=== PATIENT | female | born 1940 | race Hispanic/Latino ===

== ENCOUNTER 2017-01-04 07:12 | Emergency (ER) | payer OTHER ==
[~2017-01-04] VITALS: Ht 144.8 cm; Wt 71.0 kg
[~2017-01-04 07:12] MED LIST: Ascorbic Acid,Ester- PO; HYCODAN SYRUP480 ML PO; MICROZIDE12.5 M1 PO; PROTONIX40 MG PO; Protonix PO; TAMIFLU75 MG PO; TENORMIN50 MG PO; ZITHROMAX Z-PA250 MG PO
[2017-01-04 08:57] LABS: HEMATOCRIT 36.4 % (36.0-46.0); MCH 30.3 PG (29.0-34.0); MCHC 34.1 G/DL (30.0-36.0); MEAN PLAT.VOLUME 10.3 uM^3 (9.5-12.4); PLATELET COUNT 78 K/uL (156-360); RBC DIS.WIDTH-CV 11.8 % (11.8-14.6); RBC DIS.WIDTH-SD 37.7 % (39-53); RED BLOOD COUNT 4.09 M/uL (3.80-5.20); WHITE BLOOD COUNT 4.5 K/uL (4.1-10.2)
[2017-01-04 09:05] LABS: CHLORIDE 107 mEq/L (99-109); POTASSIUM 3.8 mEq/L (3.7-5.4); SODIUM 141 mEq/L (136-147)
[2017-01-04 09:08] LABS: ANION GAP 9 MEQ/L (2-14)
[2017-01-04 09:09] LABS: TOTAL BILIRUBIN 0.4 mg/dL (0.0-1.0)
[2017-01-04 09:19] LABS: GLUCOSE 94 mg/dL (70-99)
[2017-01-04 09:22] LABS: ALKALINE PHOSPHATASE 96 IU/L (3-129)
[2017-01-04 09:23] LABS: GFR ESTIMATE (CALCULATED) > 59 mL/min/
[2017-01-04 09:24] LABS: UREA NITROGEN (BUN) 10 mg/dL (9-23)
[2017-01-04 09:39] LABS: ADD MIUA? YES; BILIRUBIN NEGATIVE; BLOOD NEGATIVE; COLOR COLORLESS ((YELLOW)); GLUCOSE (STRIP) NEGATIVE; KETONES NEGATIVE; LEUKOCYTES TRACE; NITRITE NEGATIVE; PROTEIN (STRIP) NEGATIVE; SPECIFIC GRAVITY 1.001 (1.000-1.030); UROBILINOGEN 0.2 MG/DL (0.2-1.0)
[2017-01-04 09:57] LABS: BACTERIA NONE SEEN /HPF; EPITHELIAL CELLS RARE /HPF; MUCUS NONE SEEN /LPF; RED BLOOD CELLS 20-30 /HPF (0-5); WHITE BLOOD CELLS 0-5 /HPF (0-5)
[2017-01-04] MEDS ORDERED: LISINOPRIL5 MG PO (10:16)
[2017-01-04 10:37] VITALS: BP 134/81
== END 2017-01-04 10:38 | disposition home or self-care (01) ==
LOC: EME 07:12
PROVIDERS: Nurse Practitioner Family
DX: I10 Essential (primary) hypertension (principal); D69.6 Thrombocytopenia, unspecified
CPT/HCPCS: 70450; 80053; 81003; 85027; 93005; 99281; 99283

== ENCOUNTER 2017-09-16 22:51 | Observation (INO) | payer OTHER ==
[~2017-09-16] VITALS: Ht 157.5 cm; Wt 73.2 kg
[~2017-09-16 22:51] MED LIST changes: +LISINOPRIL5 MG PO
[2017-09-16 23:49] LABS: HEMATOCRIT 38.7 % (36.0-46.0); HEMOGLOBIN 13.8 G/DL (11.9-15.5); MCH 30.7 PG (29.0-34.0); MCHC 35.7 G/DL (30.0-36.0); PLATELET COUNT 271 K/uL (156-360); RBC DIS.WIDTH-CV 11.9 % (11.8-14.6); RBC DIS.WIDTH-SD 37.3 % (39-53); WHITE BLOOD COUNT 6.5 K/uL (4.1-10.2)
[2017-09-17 00:02] LABS: CHLORIDE 98 mEq/L (99-109); POTASSIUM 3.4 mEq/L (3.7-5.4); SODIUM 132 mEq/L (136-147)
[2017-09-17 00:04] LABS: GLUCOSE 104 mg/dL (70-99)
[2017-09-17 00:08] LABS: CREATININE 0.7 mg/dL (0.6-1.3); GFR ESTIMATE (CALCULATED) > 59 mL/min/
[2017-09-17 00:09] LABS: UREA NITROGEN (BUN) 8 mg/dL (9-23)
[2017-09-17 00:11] LABS: TROP-I INTERPRETATION NEGATIVE; TROPONIN-I < 0.01 ng/mL (0.0-0.30)
[2017-09-17 07:50] LABS: HDL CHOLESTEROL 57 MG/DL (Desirable>=50); LDL CHOLESTEROL 211 mg/dL (Desirable<100); NON-HDL CHOLESTEROL 233 mg/dL (Desirable<160); TOTAL CHOLESTEROL 290 mg/dL (Desirable<200); TRIGLYCERIDES 110 MG/DL (Normal: <150)
[2017-09-17 08:17] LABS: TROP-I INTERPRETATION NEGATIVE; TROPONIN-I < 0.01 ng/mL (0.0-0.30)
[2017-09-17 08:58] VITALS: BP 174/74
[2017-09-17 11:34] VITALS: BP 147/71
[2017-09-17 13:47] LABS: TROP-I INTERPRETATION NEGATIVE; TROPONIN-I < 0.01 ng/mL (0.0-0.30)
[2017-09-17] MEDS ORDERED: ROBITUSSIN DM118 ML PO (15:08)
[2017-09-17] MEDS ORDERED: PRAVASTATIN SOD80 MG PO (15:08)
[2017-09-17] MEDS ORDERED: LISINOPRIL-HCT1 EAC3 PO (15:08)
[2017-09-17] MEDS ORDERED: ASPIR-LOW81 MG PO (15:08)
[2017-09-17 15:22] VITALS: BP 135/67
== END 2017-09-17 16:41 | disposition home or self-care (01) ==
LOC: EME 22:51 → ENPENDDIS 09-17 → EDOF 09-17 06:38 → ENRESERV 09-17 06:38 → EDOF 09-17 06:38 → ENRESERV 09-17 06:58 → 5WEST 09-17 07:56
PROVIDERS: Physician Assistant
DX: R07.9 Chest pain, unspecified (principal); I16.0 Hypertensive urgency; I10 Essential (primary) hypertension; R05 Cough; Z82.49 Family history of ischemic heart disease and other diseases of the circulatory system; R11.0 Nausea; R42 Dizziness and giddiness; M79.605 Pain in left leg
CPT/HCPCS: 71046; 80048; 80061; 84484; 85027; 87502; 87651 90; 93005; 99281; 99285; G0378; J1644